=== PATIENT | male | born 1965 | race Caucasian/White ===

== ENCOUNTER 2016-12-18 06:49 | Day surgery (SDC) | payer OTHER ==
[2016-12-17 11:29] LABS: HEMATOCRIT 44.1 % (42.0-54.0); HEMOGLOBIN 14.6 g/dL (13.5-17.5); MCH 29.5 pg (26.0-34.0); MCHC 33.1 g/dL (31.0-37.0); MCV 89.1 fL (80.0-100.0); MEAN PLATELET VOLUME 11.1 fL (7.4-10.4); RBC 4.95 10x6/uL (4.20-6.10); RDW 13.6 % (11.5-14.5); WBC 7.1 10x3/uL (4.8-10.8)
[~2016-12-18] VITALS: Ht 180.3 cm; Wt 130.6 kg
[~2016-12-18 06:49] MED LIST: BUSPIRONE HCL7.5 MG PO; HYDROCODON-ACE1 EAC7 PO; LEXAPRO10 MG PO; MOBIC7.5 MG PO; ZESTRIL10 MG PO
[2016-12-18 08:19] VITALS: BP 123/73; Ht 180.3 cm; Wt 130.6 kg
--- NOTE | 2016-12-18 09:50 | NUR ---
0929: DR VALDES IN ROOM TO INJECT RIGHT ANKLE. INJECTED WTIH 5ML OF MARCAIN 0.25% AND 40MG OF DEPOMEDRAL.
--- NOTE | 2016-12-18 09:53 | NUR ---
0918: PT STATED THAT NO FAMILY WAS PRESENT AT THIS TIME
[2016-12-18] MEDS ORDERED: HYDROCODONE-APA1 TAB PO (10:07)
--- NOTE | 2016-12-18 10:22 | NUR ---
VANCOMYCIN 1GM/250CC NS INFUSING ON ARRIVAL TO PACU WITH 50CC LEFT TO INFUSE
--- NOTE | 2016-12-18 12:41 | NUR ---
1230 DISCHARGE INSTRUCTIONS & PENDELUM EXERCISES DEMONSTRATED PER Zak SHARP RN. PATIENT VERBALIZED UNDERSTANDING
--- NOTE | 2016-12-29 18:23 | OP ---
PATIENT NAME: DEJAN WEBER MEDICAL RECORD: [id number] :65 LOCATION:[facility] ADMISSION DATE: SURGEON: LUCIO TELLEZ, XANDER LINO DATE OF OPERATION: 12/18/2016 PREOPERATIVE DIAGNOSES: 1. SLAP lesion of the right shoulder. 2. Impingement syndrome of the right shoulder. 3. Acromioclavicular arthritis of the right shoulder. 4. Ankle arthritis. POSTOPERATIVE DIAGNOSIS: 1. SLAP lesion of the right shoulder. 2. Impingement syndrome of the right shoulder. 3. Acromioclavicular arthritis of the right shoulder. 4. Ankle arthritis. PROCEDURE: 1. Labral debridement of the left shoulder arthroscopically: 2. Arthroscopic distal clavicle excision done through separate incision -- 1 cm. 3. Subacromial decompression with acromioplasty and bursectomy. 4. Right ankle injection. SURGEON: Xander Valdes MD ANESTHESIA: General. INTRAOPERATIVE COMPLICATIONS: None. SUMMARY OF PATHOLOGIC FINDINGS: Consistent with the above diagnosis. The patient had a labral lesion emanating into the labrum that was best debrided rather than trying to fix. OPERATIVE SUMMARY IN DETAIL: After obtaining the appropriate preoperative orthopedic surgery consents as well as anesthetic consultation, evaluation and clearance operating room and placed on the operating table in supine position. After adequate laryngeal mask airway anesthesia was administered, the patient was placed in a left lateral decubitus position. After the patient was in the right lateral decubitus position, the right ankle was prepped and draped in routine sterile fashion. A 40 mg of Depo-Medrol along with 5 cc of 0.25% Marcaine with epinephrine were injected into the ankle joint. He tolerated the procedure well. A bandage was applied here. Attention was then turned to the shoulder. The shoulder was prepped and draped in routine sterile fashion. The arm was held in the Arthrex traction boom at 30 degrees of forward flexion, 30 degrees of abduction with 10 pounds of traction laterally. Arthroscopy was established in the glenohumeral joint from a posterior portal. Anterior portal was established in the anterior safe interval. Diagnostic arthroscopy did reveal the above findings. The anterior portal of the labrum was debrided posteriorly and anteriorly with superior aspect of the glenoid as well. Having completed this, noting there were no rotator cuff tearing on the articular aspect. Attention was turned to the subacromial space. Following subacromial space, Wiseman tissue ablation system was utilized to denude the undersurface of the acromion of all soft tissue elements and released OPERATIVE REPORT [id number] GUSDEJAN VERAS coracoacromial ligament. A 5-0 barrel bur was then used to perform acromioplasty of the acromioclavicular joint. All bursa was taken down at this point and no rotator cuff tearing was noted. Under direct arthroscopic visualization through a separate anterior arthroscopic portal, a 5-0 barrel bur was utilized and then did distal clavicle excision 1 cm. Having completed this, arthroscopy portals were closed in routine interrupted fashion using a 4-0 Prolene. Sterile dressings were applied. The patient was awakened and taken to the recovery room in stable condition. All final needle and sponge counts were correct. TRANSINT:[id number] Voice Confirmation ID: [id number] DOCUMENT ID: [id number] LUCIO TELLEZ, XANDER LINO at 1823 CC: [id number] DICTATION DATE: 12/18/16 1010 MARINE ENGINE MACHINIST: 12/18/16 1034 [facility] 12/18/16 [facility] [address] [place] [address]
== END 2016-12-18 12:35 | disposition home or self-care (01) ==
LOC: D.OPS 06:49 → D.PAN 09:00 → D.OPS 10:00 → D.PAN 10:00 → D.OPS 10:25 → D.PAN 10:25 → D.OPS 12:35
PROVIDERS: Anesthesiology
DX: S43.431A Superior glenoid labrum lesion of right shoulder, initial encounter (principal); M75.41 Impingement syndrome of right shoulder; M13.811 Other specified arthritis, right shoulder; M13.871 Other specified arthritis, right ankle and foot

== ENCOUNTER → 2017-04-14 19:56 | Outpatient (CLI) | payer OTHER ==
[2016-12-18 08:19] VITALS: BMI 40.2
[~2017-04-14 19:56] MED LIST changes: +HYDROCODONE-APA1 TAB PO
== END | disposition home or self-care (01) ==
LOC: D.SLEEP 19:56
DX: G47.33 Obstructive sleep apnea (adult) (pediatric) (principal)

== ENCOUNTER → 2017-08-05 11:24 | Outpatient (CLI) | payer OTHER ==
[2016-12-18 08:19] VITALS: BMI 40.2
== END | disposition home or self-care (01) ==
LOC: D.RAD 11:24
DX: M54.5 Low back pain (principal); M54.6 Pain in thoracic spine

== ENCOUNTER → 2017-08-12 08:25 | Outpatient (CLI) | payer OTHER ==
[2016-12-18 08:19] VITALS: BMI 40.2
[2017-08-12 08:46] LABS: BASOPHILS 0.1 % (0-2); HEMATOCRIT 41.6 % (42.0-54.0); HEMOGLOBIN 13.8 g/dL (13.5-17.5); IMMATURE GRANULOCYTES 0.2 % (0-5); LYMPHOCYTES 20.2 % (15-50); MCH 30.3 pg (26.0-34.0); MCHC 33.2 g/dL (31.0-37.0); MCV 91.4 fL (80.0-100.0); MONOCYTES 5.5 % (2-11); PLATELET COUNT 241 10x3/uL (130-400); RBC 4.55 10x6/uL (4.20-6.10); RDW 13.3 % (11.5-14.5); WBC 8.7 10x3/uL (4.8-10.8)
[2017-08-12 09:00] LABS: ALBUMIN 3.8 g/dL (3.4-5.0); ANION GAP 10.9 mmol/L (8-16); BILIRUBIN - DIRECT 0.09 mg/dL (0.00-0.30); BILIRUBIN - INDIRECT 0.25 mg/dL (0.00-1.00); BILIRUBIN - TOTAL 0.34 mg/dL (0.2-1.3); CALCIUM 9.1 mg/dL (8.5-10.1); CARBON DIOXIDE 30.9 mmol/L (21.0-32.0); CREATININE - SERUM 1.2 mg/dL (0.6-1.3); POTASSIUM - SERUM 4.8 mmol/L (3.5-5.1); PROTEIN - SERUM 7.9 g/dL (6.4-8.2)
== END | disposition home or self-care (01) ==
LOC: D.US 08-05 09:00 → D.LAB 08-05 09:30 → D.US 08-11 08:30 → D.LAB 08-11 09:00 → D.US 08:25
PROVIDERS: Internal Medicine Gastroenterology
DX: R74.8 Abnormal levels of other serum enzymes (principal); R11.0 Nausea

== ENCOUNTER 2018-10-20 15:09 | Inpatient (IN) | payer MEDICAID ==
[~2018-10-20] VITALS: Ht 180.3 cm; Wt 113.6 kg
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
--- NOTE | ~2018-10-20 | MORECARE ---
CASE MANAGEMENT DISCHARGE SUMMARY PATIENT: DEJAN RUBIN UNIT: [id number] ADM DATE: 10/21/18 AGE: 53 : 65 SEX: M ROOM/BED: D.2231 AUTHOR: LALADOC PHYSICIAN: REFERRING PHYSICIAN: BHUPINDER PACK MD DATE OF SERVICE: 10/22/18 Discharge Plan Patient Name: DEJAN RUBIN [facility] [facility] 1965 Planned Disposition: Home Anticipated Discharge Date: Discharge Date: Expected LOS: Initial Reviewer: [email or web address] Initial Review Date: 10/22/2018 Generated: 10/22/18 1:44 pm Comments DCP- Discharge Planning Updated by [email or web address]: Neetu Oswald on 10/22/18 11:[address] Patient Name: DEJAN RUBIN Admission Status: ER Accout number: [id number] Admission Date: 10-21-2018 : 1965 Admission Diagnosis: Attending: BHUPINDER PACK Current LOS: 1 Anticipated DC Date: Planned Disposition: Home Primary Insurance: MEDICAID [place] Discharge Planning Comments: CM met with patient to discuss discharge planning. He lives alone, his son is taking him home on discharge. He gets his CPAP and Nebulizer supplies from [facility] in [facility]. He states his discharge plan is to return home and feels this is a safe plan. Declines home health services offered. Declines need for further DME. CM will continue to follow and assist with discharge planning/needs. Marketing And Development Coordinator: Neetu Oswald DCPIA - Discharge Planning Initial Assessment Updated by [email or web address]: Neetu Oswald on 10/22/18 12:33 pm * Is the patient Alert and Oriented? Yes * How many steps to enter\exit or inside your home? 1/0 * PCP Caroline at [facility] * Pharmacy [facility] * Preadmission Environment Home Alone * ADLs Independent * Equipment CPAP Nebulizer * List name and contact numbers for known caregivers / representatives who currently or will assist patient after discharge: Mario Rubin - son - [phone] * Verbal permission to speak to the caregivers and representatives has been obtained from the patient. Yes * Community resources currently utilized None * Additional services required to return to the preadmission environment? No * Can the patient safely return to the preadmission environment? Yes * Has this patient been hospitalized within the prior 30 days at any hospital? Yes Last DP export: 10/22/18 11:36 Patient Name: DEJAN RUBIN Page [id number] at 1244 All edits/amendments must be made on the electronic document DICTATION DATE: 10/22/181242 [employer] INFORMATION CLERK: JOSE 10/22/181242 RPT#: [id number] DC DATE: STATUS: ADM IN [facility] [address] [place] [address] END OF REPORT
--- NOTE | ~2018-10-20 | MORECARE ---
CASE MANAGEMENT DISCHARGE SUMMARY PATIENT: DEJAN RUBIN UNIT: [id number] ADM DATE: 10/21/18 AGE: 53 : 65 SEX: M ROOM/BED: D.2231 AUTHOR: BARI REEVES PHYSICIAN: REFERRING PHYSICIAN: BHUPINDER PACK MD DATE OF SERVICE: 10/22/18 Discharge Plan Patient Name: DEJAN RUBIN [facility] [facility] 1965 Planned Disposition: Home Anticipated Discharge Date: Discharge Date: Expected LOS: Initial Reviewer: [email or web address] Initial Review Date: 10/22/2018 Generated: 10/22/18 1:36 pm DCPIA - Discharge Planning Initial Assessment Updated by [email or web address]: Neetu Oswald on 10/22/18 12:33 pm * Is the patient Alert and Oriented? Yes * How many steps to enter\exit or inside your home? 1/0 * PCP Caroline at [facility] * Pharmacy [facility] * Preadmission Environment Home Alone * ADLs Independent * Equipment CPAP Nebulizer * List name and contact numbers for known caregivers / representatives who currently or will assist patient after discharge: Mario Rubin - rbj - [phone] * Verbal permission to speak to the caregivers and representatives has been obtained from the patient. Yes * Community resources currently utilized None * Additional services required to return to the preadmission environment? No * Can the patient safely return to the preadmission environment? Yes * Has this patient been hospitalized within the prior 30 days at any hospital? Yes Patient Name: DEJAN RUBIN Page [id number] at 1236 All edits/amendments must be made on the electronic document DICTATION DATE: 10/22/18 1236 OUTSIDE SALES: JOSE 10/22/18 1236 RPT#: [id number] DC DATE: STATUS: ADM IN [facility] [address] [place] [address] END OF REPORT
--- NOTE | ~2018-10-20 | MORECARE ---
CASE MANAGEMENT DISCHARGE SUMMARY PATIENT: DEJAN RUBIN UNIT: [id number] ADM DATE: 10/21/18 AGE: 53 : 65 SEX: M ROOM/BED: D.2231 AUTHOR: BARI REEVES PHYSICIAN: REFERRING PHYSICIAN: BHUPINDER PACK MD DATE OF SERVICE: 10/22/18 Discharge Plan Patient Name: DEJAN RUBIN [facility] [facility] 1965 Planned Disposition: Home Anticipated Discharge Date: Discharge Date: 10/22/2018 Expected LOS: 0 Initial Reviewer: [email or web address] Initial Review Date: 10/22/2018 Generated: 10/22/18 5:12 pm Comments DCP- Discharge Planning Updated by [email or web address]: Neetu Oswald on 10/22/18 11:[address] Patient Name: DEJAN RUBIN Admission Status: ER Accout number: [id number] Admission Date: 10-21-2018 : 1965 Admission Diagnosis: Attending: BHUPINDER PACK Current LOS: 1 Anticipated DC Date: Planned Disposition: Home Primary Insurance: MEDICAID [place] Discharge Planning Comments: CM met with patient to discuss discharge planning. He lives alone, his son is taking him home on discharge. He gets his CPAP and Nebulizer supplies from [facility] in [facility]. He states his discharge plan is to return home and feels this is a safe plan. Declines home health services offered. Declines need for further DME. CM will continue to follow and assist with discharge planning/needs. Steel Roller: Neetu Oswald DCPIA - Discharge Planning Initial Assessment Updated by [email or web address]: Neetu Oswald on 10/22/18 12:33 pm * Is the patient Alert and Oriented? Yes * How many steps to enter\exit or inside your home? 1/0 * PCP Caroline at [facility] * Pharmacy [facility] * Preadmission Environment Home Alone * ADLs Independent * Equipment CPAP Nebulizer * List name and contact numbers for known caregivers / representatives who currently or will assist patient after discharge: Mario Rubin - son - [phone] * Verbal permission to speak to the caregivers and representatives has been obtained from the patient. Yes * Community resources currently utilized None * Additional services required to return to the preadmission environment? No * Can the patient safely return to the preadmission environment? Yes * Has this patient been hospitalized within the prior 30 days at any hospital? Yes Last DP export: 10/22/18 11:44 Patient Name: DEJAN RUBIN Page [id number] at 1612 All edits/amendments must be made on the electronic document DICTATION DATE: 10/22/181610 SEPHORA PRODUCT CONSULTANT: JOSE 10/22/181610 RPT#: [id number] DC DATE:10/22/18 STATUS: DIS IN [facility] [address] [place] [address] END OF REPORT
[2018-10-20 16:03] LABS: APPEARANCE CLEAR (CLEAR); COLOR YELLOW (YELLOW); GLUCOSE NEGATIVE (NEGATIVE); KETONE NEGATIVE (NEGATIVE); NITRITE NEGATIVE (NEGATIVE); PROTEIN 2+ mg/dL (NEGATIVE); UROBILINOGEN NORMAL (NORMAL)
[2018-10-20 16:04] LABS: BILIRUBIN NEGATIVE (NEGATIVE)
[2018-10-20 16:12] LABS: BASOPHILS 0.1 % (0-2); EOSINOPHILS 0.7 % (0-7); HEMATOCRIT 47.7 % (42.0-54.0); HEMOGLOBIN 16.4 g/dL (13.5-17.5); IMMATURE GRANULOCYTES 0.5 % (0-5); LYMPHOCYTES 15.8 % (15-50); MCH 29.9 pg (26.0-34.0); MCHC 34.4 g/dL (31.0-37.0); MEAN PLATELET VOLUME 9.9 fL (7.4-10.4); MONOCYTES 5.5 % (2-11); NEUTROPHILS 77.4 % (40-80); RBC 5.48 10x6/uL (4.20-6.10); RDW 14.1 % (11.5-14.5); WBC 16.2 10x3/uL (4.8-10.8)
[2018-10-20 16:14] LABS: PLATELET COUNT 375 10x3/uL (130-400)
[2018-10-20 16:16] LABS: UDS - AMPHET POSITIVE QUAL (NEGATIVE); UDS - BARB NEGATIVE QUAL (NEGATIVE); UDS - BENZO NEGATIVE QUAL (NEGATIVE); UDS - COCAINE NEGATIVE QUAL (NEGATIVE); UDS - OPIATE NEGATIVE QUAL (NEGATIVE); UDS - PCP NEGATIVE QUAL (NEGATIVE); UDS - THC NEGATIVE QUAL (NEGATIVE)
[2018-10-20 16:39] LABS: ALBUMIN 4.3 g/dL (3.4-5.0); ALKALINE PHOSPHATASE 79 U/L (46-116); ALT (SGPT) 23 U/L (10-68); BILIRUBIN - TOTAL 0.76 mg/dL (0.2-1.3); CALC OSMOLALITY 263 mosm/kg (275-300); CALCIUM 10.5 mg/dL (8.5-10.1); CARBON DIOXIDE 27.7 mmol/L (21.0-32.0); CHLORIDE - SERUM 91 mmol/L (98-107); CREATININE - SERUM 1.8 mg/dL (0.6-1.3); GLUCOSE 121 mg/dL (74-106); POTASSIUM - SERUM 4.6 mmol/L (3.5-5.1); PROTEIN - SERUM 9.5 g/dL (6.4-8.2); SODIUM 129 mmol/L (136-145); UREA NITROGEN 24 mg/dL (7-18); eGFR NON AFRICAN AMERICAN 42 mL/min (90-120)
[2018-10-20 16:49] LABS: INR 4.36 (0.85-1.17); PROTIME 41.5 SECONDS (11.6-15.0)
[2018-10-20 16:51] LABS: CKMB 0.1 U/L (0.0-3.6); CREATINE KINASE 26 UL (21-232); MAGNESIUM - SERUM 1.7 mg/dL (1.8-2.4); THYROID STIMULATING HORMONE 0.62 uIU/mL (0.36-3.74)
[2018-10-20 16:58] LABS: APTT 52.7 SECONDS (22.8-39.4)
[2018-10-20 17:02] LABS: TROPONIN-I < 0.017 ng/mL (0.000-0.060)
[2018-10-20 19:44] VITALS: BP 112/78
[2018-10-20 22:40] VITALS: BP 92/51; Ht 180.3 cm; Wt 113.6 kg
[2018-10-21] VITALS: BP 118/79
[2018-10-21 04:00] VITALS: BP 122/66
[2018-10-21 06:58] LABS: BASOPHILS 0.2 % (0-2); EOSINOPHILS 0.8 % (0-7); HEMATOCRIT 44.6 % (42.0-54.0); HEMOGLOBIN 15.1 g/dL (13.5-17.5); IMMATURE GRANULOCYTES 0.2 % (0-5); MCH 29.4 pg (26.0-34.0); MCHC 33.9 g/dL (31.0-37.0); MCV 86.9 fL (80.0-100.0); MONOCYTES 8.1 % (2-11); NEUTROPHILS 73.7 % (40-80); RBC 5.13 10x6/uL (4.20-6.10); RDW 14.2 % (11.5-14.5)
[2018-10-21 07:01] LABS: PLATELET COUNT 291 10x3/uL (130-400); WBC 12.1 10x3/uL (4.8-10.8)
[2018-10-21 07:22] LABS: APTT 34.1 SECONDS (22.8-39.4); INR 0.97 (0.85-1.17); PROTIME 12.6 SECONDS (11.6-15.0)
[2018-10-21 07:23] LABS: ALBUMIN 3.7 g/dL (3.4-5.0); ANION GAP 13.2 mmol/L (8-16); BILIRUBIN - TOTAL 0.73 mg/dL (0.2-1.3); CALCIUM 9.3 mg/dL (8.5-10.1); CARBON DIOXIDE 27.2 mmol/L (21.0-32.0); CREATININE - SERUM 1.6 mg/dL (0.6-1.3); POTASSIUM - SERUM 4.4 mmol/L (3.5-5.1); PROTEIN - SERUM 8.2 g/dL (6.4-8.2)
[2018-10-21 08:41] VITALS: BP 106/74
[2018-10-21 20:00] VITALS: BP 98/56
[2018-10-22] VITALS: BP 98/58
[2018-10-22 04:00] VITALS: BP 116/60
[2018-10-22 05:52] LABS: PROTIME 12.7 SECONDS (11.6-15.0)
[2018-10-22 05:56] LABS: BASOPHILS 0.1 % (0-2); EOSINOPHILS 2.1 % (0-7); HEMOGLOBIN 14.6 g/dL (13.5-17.5); IMMATURE GRANULOCYTES 0.3 % (0-5); LYMPHOCYTES 13.9 % (15-50); MCH 29.4 pg (26.0-34.0); MCV 86.5 fL (80.0-100.0); MONOCYTES 11.3 % (2-11); NEUTROPHILS 72.3 % (40-80); RBC 4.97 10x6/uL (4.20-6.10); RDW 14.4 % (11.5-14.5)
[2018-10-22 05:57] LABS: PLATELET COUNT 229 10x3/uL (130-400); WBC 7.1 10x3/uL (4.8-10.8)
[2018-10-22 05:58] LABS: ANION GAP 13.3 mmol/L (8-16); CALCIUM 8.6 mg/dL (8.5-10.1); CARBON DIOXIDE 25.5 mmol/L (21.0-32.0); CREATININE - SERUM 1.4 mg/dL (0.6-1.3); POTASSIUM - SERUM 3.8 mmol/L (3.5-5.1)
[2018-10-22 08:57] VITALS: BP 117/70
== END 2018-10-22 13:43 | disposition home or self-care (01) | DRG 641 ==
LOC: D.ER 15:09 → D.EDHOLD 18:14 → OBSVTIME 18:15 → D.MS 18:44
PROVIDERS: Family Medicine
DX: E87.1 Hypo-osmolality and hyponatremia (principal); D68.59 Other primary thrombophilia; E86.0 Dehydration; R41.0 Disorientation, unspecified; I10 Essential (primary) hypertension; E11.9 Type 2 diabetes mellitus without complications; F15.99 Other stimulant use, unspecified with unspecified stimulant-induced disorder; H54.61 Unqualified visual loss, right eye, normal vision left eye